=== PATIENT | male | born 1995 | race Caucasian/White ===

== ENCOUNTER 2021-10-25 11:58 | Emergency (ER) | payer SELFPAY | END 2021-10-25 14:46 | disposition home or self-care (01) | LOC: JD.ED 11:58 | DX: S00.03XA Contusion of scalp, initial encounter (principal); S10.93XA Contusion of unspecified part of neck, initial encounter; S20.211A Contusion of right front wall of thorax, initial encounter; Y04.0XXA Assault by unarmed brawl or fight, initial encounter | CPT/HCPCS: 70450; 70450-26; 70486; 70486-26; 71046; 71046-26; 72125; 72125-26; 99284; 99284-25 ==